=== PATIENT | male | born 1935 | race Caucasian/White ===

== ENCOUNTER 2020-02-03 09:49 | Outpatient (REF) | payer MEDICARE, SELFPAY ==
[2020-02-03 12:11] LABS: Prostate Specific Antigen < 0.05 ng/mL (<0.05-4.0)
[2020-02-07 11:52] LABS: Testosterone, Total 6 ng/dL (250-1100)
== END 2020-02-03 09:50 | disposition home or self-care (01) ==
LOC: HO.HMGCLDS 09:49
PROVIDERS: PCP Internal Medicine; Visit Provider Urology
DX: C61 Malignant neoplasm of prostate (principal)
CPT/HCPCS: 84153; 84403